=== PATIENT | male | born 1985 | race Caucasian/White ===

== ENCOUNTER 2023-11-01 22:08 | Emergency (ER) | payer OTHER ==
[2023-11-01 22:53] LABS: APPEARANCE,URINE CLOUDY (CLEAR); BILIRUBIN,URINE NEGATIVE (NEGATIVE); COLOR,URINE YELLOW (YELLOW); GLUCOSE,URINE NEGATIVE (NEGATIVE); KETONES,URINE NEGATIVE (NEGATIVE); LEUKOCYTE ESTERASE,URINE NEGATIVE (NEGATIVE); NITRITE,URINE NEGATIVE (NEGATIVE); OCCULT BLOOD,URINE MODERATE (NEGATIVE); PH,URINE 8.5 (5.0-9.0); PROTEIN,URINE 30 (NEGATIVE); UROBILINOGEN,URINE 0.2 mg/dL (0.2-1.0)
[2023-11-01] MEDS: fentaNYL 100 MCG/2 ML SDV IVPUSH ONE ×2 (23:00→23:29)
[2023-11-01 23:07] LABS: BASOPHILS PERCENT AUTO 0.3 % (0.0-1.0); EOSINOPHILS PERCENT AUTO 1.3 % (1.0-3.0); HEMATOCRIT 42.1 % (40.0-54.0); LYMPHOCYTES PERCENT AUTO 26.6 % (20.5-50.1); MEAN CORPUSCULAR HEMOGLOBIN 30.5 pg (27.0-34.0); MEAN CORPUSCULAR HGB CONC 35.6 g/dL (33.0-35.0); MEAN CORPUSCULAR VOLUME 85.7 fL (80-100); MONOCYTES PERCENT AUTO 9.3 % (2-8); NEUTROPHILS PERCENT AUTO 62.5 % (42.2-75.2); PLATELET COUNT,PLT 217 10^3/uL (150-450); RED BLOOD CELL COUNT 4.91 10^6/uL (4.6-6.2); WHITE BLOOD CELL COUNT,WBC 12.1 10^3/uL (5.0-10.0)
[2023-11-01 23:20] LABS: AMORPHOUS SEDIMENT,URINE RARE /HPF (NOT SEEN); BACTERIA,URINE FEW /HPF (0-FEW/HPF); EPITHELIAL CELLS,URINE RARE /HPF (NOT SEEN); FINE GRANULAR CASTS,URINE OCCASIONAL /LPF (NOT SEEN); RBC,URINE 75-100 /HPF (0-5); WBC,URINE 0-5 /HPF (0-5/HPF)
[2023-11-01] MEDS: Sodium Chloride 0.9% 10 ML Syringe FLUSH PRN (23:23)
[2023-11-01 23:27] LABS: A/G RATIO 1.1; ALBUMIN 3.9 g/dL (3.4-5.0); ANION GAP 12.4 mEq/L (7-13); BILIRUBIN TOTAL 0.4 mg/dL (0.2-1.0); BUN/CREATININE RATIO 11.2 (No establ ref range); CALCIUM 8.6 mg/dL (8.5-10.1); CREATININE 1.25 mg/dL (0.70-1.30); EST CRCL DRUG DOSING (CG) 85.34 mL/min; POTASSIUM,K 3.4 mmol/L (3.5-5.1); PROTEIN TOTAL,TP 7.6 g/dL (6.4-8.2)
[2023-11-01] MEDS: Ondansetron 4 MG/2 ML SDV IVPUSH ONE (23:46)
[2023-11-01] MEDS: Ketorolac 30 MG/ML SDV IVPUSH ONE (23:50)
[2023-11-02] MEDS: Tamsulosin 0.4 MG Cap.ER PO ONE (01:09)
== END 2023-11-02 01:22 | disposition home or self-care (01) ==
LOC: DL.ED 22:08
DX: N13.2 Hydronephrosis with renal and ureteral calculous obstruction (principal)
CPT/HCPCS: 36415; 74176; 80053; 81001; 85025; 96374; 96375; 99284; A9270; J1885; J2405; J3010; J3490